=== PATIENT | female | born 1985 | race Two or more races ===

== ENCOUNTER 2020-02-28 00:17 | Emergency (ER) | payer MEDICAID ==
[~2020-02-28] VITALS: Ht 165.1 cm; Wt 59.0 kg
[2020-02-28 00:18] VITALS: BP 137/90
== END 2020-02-28 00:37 | disposition home or self-care (01) ==
LOC: ER 00:17
DX: S09.90XA Unspecified injury of head, initial encounter (principal); W10.8XXA Fall (on) (from) other stairs and steps, initial encounter; Y93.89 Activity, other specified; Y92.89 Other specified places as the place of occurrence of the external cause; Y99.8 Other external cause status